=== PATIENT | female | born 1990 | race Caucasian/White ===

== ENCOUNTER → 2017-12-04 09:25 | Outpatient (CLI) | payer SELFPAY ==
[2017-12-04 12:20] LABS: Hematocrit 39.2 % (37-47); Hemoglobin 13.5 g/dl (12.0-15.0); Mean Corp Hgb Conc 34.4 g/gl (32-36); Mean Corpuscular Hgb 33.4 pg (27.0-32.0); Mean Platelet Vol. 10.6 fl (6.2-12.0); Platelet Count 222 K/mm3 (150-450); RBC Distribution Width CV 12.9 % (11.6-14.6); RBC Distribution Width SD 44.8 fl (35.1-43.9); Red Blood Count 4.04 M/mm3 (4.2-5.4); White Blood Count 11.1 K/mm3 (4.4-11.0)
[2017-12-04 12:28] LABS: Glucose Challenge Gest 1H 50g 102 mg/dL (70-140)
[2017-12-04 12:32] LABS: Scan Indicated on CBC? Y/N NO
== END ==
PROVIDERS: Visit Provider Obstetrics & Gynecology
DX: Z34.83 Encounter for supervision of other normal pregnancy, third trimester (principal)
CPT/HCPCS: 36415; 82950; 85027

== ENCOUNTER → 2018-02-04 10:52 | Outpatient (CLI) | payer OTHER, SELFPAY ==
[2018-02-04 16:44] LABS: Group B Strep DNA By PCR Negative (Negative); Internal Control PASS; Probe Check PASS; Specimen Processing Control PASS
== END ==
PROVIDERS: Visit Provider Obstetrics & Gynecology
DX: Z36.85 Encounter for antenatal screening for Streptococcus B (principal)
CPT/HCPCS: 87081; 87653

== ENCOUNTER 2018-02-26 16:40 | Inpatient (IN) | payer SELFPAY ==
[2018-02-26] MEDS: Oxytocin 30 units/NS 500 ml 30 UNITS/500 ML IV.SOLN 334 UNITS IV (17:00)
--- NOTE | 2018-02-26 17:13 | PCM.OB.VAG ---
Vaginal Delivery Maternal Presentation: Active Labor Amniotic Membrane Rupture Type: Artificial Amniotic Fluid Description: Lightly stained meconium Final JOSE JUAN: 03/04/18 Final JOSE JUAN Source: US <20 weeks Gestational age: 39 Weeks and 1 Days Surgery/ Procedure Performed: Spontaneous Vaginal Delivery - Type of Anesthesia: None Description of Procedure: Spontaneous vaginal delivery of a viable male infant with Apgars of 8/10 from an occiput anterior presentation with lightly stained meconium fluid and lightly stained placental membranes. Cord around the neck ?1 tight. No episiotomy. First-degree midline laceration repaired with 3-0 Vicryl suture. Successful . Sponge counts okay. Delivery physician: Lauro Dewey MD. Presentation: Vertex Placental Delivery Description: Spontaneous Placenta Disposition: [facility] Cord Vessel Description: 3 Vessels Cord Entanglement: Around neck x 1, tight Estimated Blood Loss: <250 cc A gender: Male (1 minute): 8 (5 minute): 10 Episiotomy Description: None Laceration: Midline, 1st degree Medications given after delivery: IV Pitocin Complications: None
--- NOTE | 2018-02-26 17:23 | PCM.DCVAG ---
Discharge Diet: No Restrictions Discharge Activity: May Shower, May Take a Tub Bath May resume sexual activity in: 4-6 weeks Additional Activity Instructions:: Nothing in the vagina for 4-6 weeks. You may return to work/school in 6 weeks. Call your doctor if you observe: Fever of 101 or Higher, Inability to urinate, Inability to have a bowel movement, Using more than one pad per hour Additional Instructions: If you experience any of the following, contact your healthcare provider. Bleeding that soaks a pad every hour for 2 hours Unrelieved incision or abdominal pain Swelling, redness, discharge or bleeding from your incision or episiotomy site Your incision begins to separate Problems urinating (including inability to urinate or burning while urinating). Visual changes Severe headache Flu-like symptoms Pain or redness in one of both of your breasts Pain, warmth, tenderness or swelling in your legs, especially the calf area Frequent nausea and vomiting Symptoms of depression or anxiety If you experience any of the following, call 911 or go to the nearest Emergency Room. Chest pain Problems breathing Seizure activity Partial or complete paralysis of a body part, slurred speech, weakness or drooping of the face, or a sudden inability to walk or hold your balance Please Follow Up With: Lauro Dewey MD - [phone] When: Call to make an appointment with your doctor in 6 weeks. Primary Care Physician: Care Physician,No Primary [Primary Care Provider] - Test Results: Test results from this visit will be discussed in further detail at your follow-up appointment, if applicable.
[2018-02-26 17:24] VITALS: BMI 33.5
[2018-02-26] MEDS: Oxytocin 30 units/NS 500 ml 30 UNITS/500 ML IV.SOLN 167 UNITS IV (17:30)
[2018-02-26 17:51] LABS: Hematocrit 39.8 % (37-47); Hemoglobin 13.8 g/dl (12.0-15.0); Mean Corp Hgb Conc 34.7 g/gl (32-36); Mean Corpuscular Hgb 33.3 pg (27.0-32.0); Mean Corpuscular Volume 96.1 fL (81-99); Mean Platelet Vol. 10.8 fl (6.2-12.0); Platelet Count 227 K/mm3 (150-450); RBC Distribution Width CV 12.9 % (11.6-14.6); RBC Distribution Width SD 44.7 fl (35.1-43.9); Red Blood Count 4.14 M/mm3 (4.2-5.4); White Blood Count 13.8 K/mm3 (4.4-11.0)
[2018-02-26 18:00] LABS: Scan Indicated on CBC? Y/N NO
[2018-02-26 20:19] VITALS: BP 146/71; PULSE 96; RESP 18; TEMP 36.6
[2018-02-27 01:11] VITALS: BP 111/66; PULSE 83; RESP 16; TEMP 36.7
[2018-02-27 05:12] VITALS: BP 111/79; PULSE 80; RESP 18; TEMP 36.6
--- NOTE | 2018-02-27 07:55 | PCM.PN.OB ---
Subjective: Patient without complaints. Minimal vaginal bleeding. Considering going home later today if baby is able to go. - Physical Exam Vital Signs Temp Pulse Resp BP 97.9 F 80 18 111/79 02/27/18 05:12 02/27/18 05:12 02/27/18 05:12 02/27/18 05:12 Oxygen Delivery Method Room Air Weight: 208 lb Body Mass Index (BMI) 33.5 Laboratory Tests Past 24 Hrs 02/26/18 02/26/18 16:45 16:45 WBC 13.8 H RBC 4.14 L Hgb 13.8 Hct 39.8 MCV 96.1 MCH 33.3 H MCHC 34.7 RDW 12.9 RDW Differential 44.7 H Plt Count 227 MPV 10.8 Blood Type A POSITIVE Antibody Screen NEGATIVE Medical Necessity - Tobacco Use Smoking Status: Former smoker Assessment/Plan Doing well. Will release to home with routine instructions.
[2018-02-27 08:02] VITALS: BP 115/78; PULSE 87; RESP 20; TEMP 36.4
[2018-02-27 12:00] VITALS: BP 110/64; PULSE 76; RESP 18; TEMP 36.1
== END 2018-02-27 18:45 | disposition home or self-care (01) | DRG 775 ==
PROVIDERS: Admitting Provider Obstetrics & Gynecology; Visit Provider Obstetrics & Gynecology
DX: O34.211 Maternal care for low transverse scar from previous cesarean delivery (principal); O71.4 Obstetric high vaginal laceration alone; O77.0 Labor and delivery complicated by meconium in amniotic fluid; O69.1XX0 Labor and delivery complicated by cord around neck, with compression, not applicable or unspecified; Z87.891 Personal history of nicotine dependence; Z3A.39 39 weeks gestation of pregnancy; Z37.0 Single live birth
CPT/HCPCS: 59050; 85027; 86850; 86900; 99218; G0378

== ENCOUNTER → 2019-11-12 | Outpatient (CLI) | payer OTHER, SELFPAY ==
[2019-11-12 13:56] LABS: Absolute Lymphocyte Count 2.62 X10^3/uL (0.83-4.51); Absolute Neutrophil Count 8.4 X10^3/uL (2.0-7.7); Basophil# 0.03 X10^3/uL; Basophil% 0.3 % (0-1); Eosinophil# 0.15 X10^3/uL; Eosinophils% 1.3 % (0-5); Hematocrit 40.2 % (37-47); Hemoglobin 13.5 g/dL (12.0-15.0); Lymphocyte # 2.62 X10^3/ul (4.0); Lymphocyte % 21.9 % (19-41); Mean Corp Hgb Conc 33.6 g/dL (32-36); Mean Corpuscular Hgb 31.9 pg (27.0-32.0); Mean Platelet Vol. 10.2 fl (6.2-12.0); Monocyte# 0.68 X10^3/uL; Monocyte% 5.7 % (0-10); NRBC Flagged by Analyzer 0 % (0-5); Neutrophil # 8.38 X10^3/uL (2.7-7.7); Neutrophil % 69.9 % (47-70); Platelet Count 296 K/mm3 (150-450); RBC Distribution Width CV 12.8 % (11.6-14.6); RBC Distribution Width SD 44.8 fl (35.1-43.9); Red Blood Count 4.23 M/mm3 (4.2-5.4)
[2019-11-12 14:01] LABS: Color, Urine Yellow (Yellow); Glucose, Dipstick Normal (Normal); Ketone-Dipstick Negative (Negative); Leukocyte Esterase-Dipstick Negative /ul (Negative); Nitrite-Dipstick Negative (Negative); Occult Blood-Urine Negative /ul (Negative); Protein-Dipstick Negative (Negative); Urine Bilirubin Dipstick Negative (Negative); Urine Clarity Clear (Clear); Urine Urobilinogen Normal (Normal)
[2019-11-12 14:47] LABS: HIV - WCH Non-Reactive (Nonreactive); Hepatitis B Surface Antigen Non-Reactive (Nonreactive); Hepatitis C Antibody Non-Reactive (Nonreactive); Rubella IgG 110.4 IU/mL
[2019-11-12 15:32] LABS: Chlamydia Trachomatis by PCR Negative (Negative); Neisserai gonorrhoeae by PCR Negative (Negative); Probe Check PASS; Sample Adequacy Control PASS; Specimen Processing Control PASS
[2019-11-16 20:41] LABS: HPV Reflexed? NOT INDICATED
[2019-11-18 03:36] LABS: Prenatal RPR NONREACTIVE (NONREACTIVE)
== END | disposition home or self-care (01) ==
LOC: LABSPEC 13:23
PROVIDERS: Visit Provider Obstetrics & Gynecology
DX: Z12.4 Encounter for screening for malignant neoplasm of cervix (principal); Z11.3 Encounter for screening for infections with a predominantly sexual mode of transmission; Z34.82 Encounter for supervision of other normal pregnancy, second trimester
CPT/HCPCS: 36415; 81002; 85025; 86703; 86762; 86803; 87340; 87491; 87591; 88175; G0145

== ENCOUNTER → 2020-01-17 14:08 | Outpatient (CLI) | payer OTHER, SELFPAY ==
[2020-01-17 15:47] LABS: Hematocrit 36.9 % (37-47); Hemoglobin 12.6 g/dL (12.0-15.0); Mean Corp Hgb Conc 34.1 g/dL (32-36); Mean Corpuscular Hgb 33.3 pg (27.0-32.0); Mean Corpuscular Volume 97.6 fL (81-99); Mean Platelet Vol. 10.4 fl (6.2-12.0); Platelet Count 249 K/mm3 (150-450); RBC Distribution Width CV 12.6 % (11.6-14.6); RBC Distribution Width SD 44.9 fl (35.1-43.9); Red Blood Count 3.78 M/mm3 (4.2-5.4); White Blood Count 11.9 K/mm3 (4.4-11.0)
[2020-01-17 15:53] LABS: Glucose Challenge Gest 1H 50g 122 mg/dL (70-140)
== END ==
PROVIDERS: Visit Provider Obstetrics & Gynecology
DX: Z34.82 Encounter for supervision of other normal pregnancy, second trimester (principal)
CPT/HCPCS: 36415; 82950; 85027

== ENCOUNTER → 2020-03-16 | Outpatient (CLI) | payer OTHER, SELFPAY | END | disposition home or self-care (01) | LOC: LABSPEC 11:47 | PROVIDERS: Visit Provider Obstetrics & Gynecology | DX: Z36.85 Encounter for antenatal screening for Streptococcus B (principal) | CPT/HCPCS: 87081 ==

== ENCOUNTER 2020-03-27 10:50 | Inpatient (IN) | payer SELFPAY, OTHER ==
[2020-03-27] VITALS (19 sets, daily range): BP systolic 104–135; BP diastolic 65–90; PULSE 75–102; RESP 16–18; TEMP 36.3–37.6; O2SAT 98–100; BMI 32.5
--- NOTE | 2020-03-27 06:31 | OB.TRI.NOTE ---
- Problem List (1) 37 weeks gestation of Status: Acute (2) False labor Status: Acute History of Present Illness Date of Service: 03/27/20 Was patient seen by the physician?: No Reason For Visit: RULE OUT LABOR Date of Service: 03/27/20 Final JOSE JUAN: 04/12/20 Final JOSE JUAN Source: US >20 weeks Gestational age: 37 Weeks and 5 Days History of Present Illness: 30yo G 6 P 3023 @ 37 5/7 wga by 22w US with hx Prior for breech presentation and 2 VBACs presents with c/o contractions. Allergies No Known Allergies Allergy (Verified 03/27/20 03:08) Physical Exam Vitals: Vital Signs Temp Pulse BP Pulse Ox 97.3 F L 75 132/73 H 100 03/27/20 06:03 03/27/20 06:03 03/27/20 06:03 03/27/20 06:03 Cervix Dilation (cm): 2 - per JUSTINE [place]: -2 Effacement (%): 60 NST - FHR Rate Baby A Baseline: 140 Variability:: Moderate Accelerations:: 15 x 15 Decelerations:: None NST Reactive:: Yes FHR Category:: Category I Uterine Activity:: 2-08/30 Impression/Plan Dx False labor at 37 weeks SVE unchanged x 3 over approximately 3 hours of observation, second trimester dating. Offered discharge home with option to be seen in office later today versus continues observation. Patient opts for discharge to home, declines office visit later today. status reassuring
--- NOTE | 2020-03-27 11:04 | HP.PCM_ITS ---
History and Physical Date of Admission: 03/27/20 Final JOSE JUAN: 04/12/20 By Ultrasound: 18 weeks 2 days HPI: 30 yo at 37/5w, JOSE JUAN 04/12/20 by 18w US, admitted for labor. +Contractions, +FM. Denies LOF, VB. Denies CHAVEZ, vision changes, chest pain, dyspnea, nausea/emesis. complicated by: prior section for breech with 2 successful VBACs, family history of cystic fibrosis, history of depression, family history of Brittle Hair Syndrome. JOSE JUAN CONFIRMATION: By LMP: 07/14/19 Final JOSE JUAN: 04/12/20 PRIOR DELIVERY HISTORY DEL DATE GEST LAB WT LB WT OZ TYPE ANES LABOR TX 06 Feb 18 39 2 7 11 Vag Local No 16 Sep 16 38 8 7 7 Vag Local No 17 Jan 13 7 0 0 0 Sab None No 17 Young 14 39 0 6 11 C-Sec Spinal No 28 Sep 15 9 0 0 0 Sab None No ALLERGIES: NKDA MEDICATIONS: Adrenal Supplement [No Strength] two tablets BID 27-0.8 mg tablet 1 PO QD Vitamin C 1,000 mg oral effervescent powder packet One pill by mouth once a day SOCIAL HISTORY: Smoking - Never Alcohol Use - None Diet - moderate, balanced diet Lifestyle - low stress lifestyle and Medical Hx: denies Surgical Hx: section REVIEW OF SYSTEMS: GENERAL - Denies fever, or chills SKIN - Denies rash, new skin lesions, or change in moles EYES - Denies blurred vision, or change in visual acuity EARS - Denies ear pain, or difficulty hearing NOSE - Denies nasal congestion, discharge, or bleeding MOUTH - Denies sore throat, or difficulty swallowing NECK - Denies pain or swelling RESPIRATORY - Denies shortness of breath, cough, wheezing CARDIOVASCULAR - Denies palpitations, chest pain, orthopnea, PND, peripheral edema, syncope or claudication GASTROINTESTINAL - Denies nausea, vomiting, diarrhea, constipation, Denies abdominal pain, melena and or bright red blood GENITOURINARY - Denies dysuria, frequency of urination, urgency, or hesitancy MUSCULOSKELETAL - Denies joint or muscle pain, or back pain NEUROLOGICAL - Denies localized numbness, weakness, or tingling PSYCHIATRIC - Denies depression, anxiety, substance abuse or suicide attempts ENDOCRINE - Denies heat or cold intolerance, weight loss or gain, increasing thirst HEMATO-IMMUNOLOGIC - Denies easy bruising, bleeding, oral ulcerations or recurrent infections INFECTION HISTORY: High risk AIDS: No High risk Hepatitis: No Exposed to TB: No Exposed to Herpes: No Rash/viral illness since LMP: No History of STD: No Labs: Mom's Labs & Results 03/27/20 03/27/20 11:10 11:10 WBC 16.9 H RBC 4.58 Hgb 14.7 Hct 43.1 MCV 94.1 MCH 32.1 H MCHC 34.1 RDW Std Deviation 43.8 RDW Coeff of Erasmo 12.7 Plt Count 278 MPV 10.8 Immature Gran % (Auto) 1.900 H Neut % (Auto) 74.3 H Lymph % (Auto) 16.7 L [place] % (Auto) 6.8 Eos % (Auto) 0.1 Baso % (Auto) 0.2 Absolute Neuts (auto) 12.5 H Absolute Lymphs (auto) 2.82 Nucleated RBC % 0 Blood Type Pending Antibody Screen Pending Labs Blood Type: A RH: POSITIVE RPR/VDRL/Syphilis Nonreactive Rubella status Immune HbSAg Negative Date Done: 11/12/19 Chlamydia Negative Gonorrhea Negative HIV/AIDS Non-Reactive Group B Strep: Negative Physical Exam: Vital Signs Temp Pulse BP Pulse Ox 03/27/20 11:49 98.5 F 95 128/77 H 98 03/27/20 11:48 98.4 F 03/27/20 11:24 99.3 F H 03/27/20 11:02 99.6 F H 101 H 135/90 H 100 10/05/20 06:03 97.3 F L 75 132/73 H 100 03/27/20 02:58 98.1 F 96 120/75 GEN: NAD HEENT: NC/AT CARDIORESPIRATORY: no increased effort ABDOMEN: soft, NT, gravid EXT: no edema MSK: muscle 5/5 all extremities Neuro: CN 2-12 grossly in tact CE: 7-8 cm per RN FHR: 140/min erasmo/+accel/no decel [place]: not tracing A/P: 30 yo at 37/5w, JOSE JUAN 04/12/20 by 18w US, admitted for labor. complicated by: prior section for breech with 2 successful VBACs, family history of cystic fibrosis, history of depression, family history of Brittle Hair Syndrome. -Admit for trial of labor after section -Routine orders -GBS negative
[2020-03-27] MEDS: Lactated Ringers 1,000 ML 50 ML IV (11:10)
[2020-03-27] MEDS: Lactated Ringers 500 ML 999 ML IV (11:11)
[2020-03-27] MEDS: Oxytocin 30 units/NS 500 ml 30 UNITS/500 ML IV.SOLN 334 UNITS IV (11:41)
[2020-03-27 11:57] LABS: Absolute Lymphocyte Count 2.82 X10^3/uL (0.83-4.51); Absolute Neutrophil Count 12.5 X10^3/uL (2.0-7.7); Basophil# 0.04 X10^3/uL; Basophil% 0.2 % (0-1); Eosinophil# 0.02 X10^3/uL; Eosinophils% 0.1 % (0-5); Hematocrit 43.1 % (37-47); Hemoglobin 14.7 g/dL (12.0-15.0); Lymphocyte # 2.82 X10^3/ul (4.0); Lymphocyte % 16.7 % (19-41); Mean Corp Hgb Conc 34.1 g/dL (32-36); Mean Corpuscular Hgb 32.1 pg (27.0-32.0); Mean Corpuscular Volume 94.1 fL (81-99); Mean Platelet Vol. 10.8 fl (6.2-12.0); Monocyte# 1.15 X10^3/uL; Monocyte% 6.8 % (0-10); NRBC Flagged by Analyzer 0 % (0-5); Neutrophil # 12.51 X10^3/uL (2.7-7.7); Neutrophil % 74.3 % (47-70); Platelet Count 278 K/mm3 (150-450); RBC Distribution Width CV 12.7 % (11.6-14.6); RBC Distribution Width SD 43.8 fl (35.1-43.9); Red Blood Count 4.58 M/mm3 (4.2-5.4); White Blood Count 16.9 K/mm3 (4.4-11.0)
--- NOTE | 2020-03-27 11:59 | PCM.OPRPT ---
Vaginal Delivery Maternal Presentation: Active Labor Final JOSE JUAN: 04/12/20 Final JOSE JUAN Source: US <20 weeks Gestational age: 37 Weeks and 5 Days Date of Procedure: 03/27/20 Pre-Operative Diagnosis: Active labor, Trial of labor after section, Larios IUP at 37/5 Post-Operative Diagnosis: Active labor, vaginal deliver after section, Larios IUP at 37/5 Surgery/ Procedure Performed: Spontaneous Vaginal Delivery Type of Anesthesia: None Description of Procedure: Cervix dilated to 10 cm, artificial rupture of membranes to clear fluid. Spontaneous vaginal delivery of viable male infant. Nuchal cord, loose. Delivered through. Baby to mom. Cord clamped and cut. Spontaneous delivery of placenta. No lacerations. EBL 300cc. APGARS 9/9. Cord Vessel Description: 3 Vessels (1 minute): 9 (5 minute): 9 Medications given after delivery: IV Pitocin
--- NOTE | 2020-03-27 12:02 | DCINST_ITS ---
Discharge Diet: No Restrictions Discharge Activity: Return to Normal Activity, May Shower May resume sexual activity in: 6 weeks Weight Bearing Status: Weight bearing as tolerated Call your doctor if you observe: Fever of 101 or Higher, Inability to urinate, Inability to have a bowel movement, Using more than one pad per hour, Shortness of breath, Dizziness Additional Instructions: If you experience any of the following, contact your healthcare provider. * Bleeding that soaks a pad every hour for 2 hours * Fever 100.4 or higher * Unrelieved incision or abdominal pain * Swelling, redness, discharge or bleeding from your incision or episiotomy site * Your incision begins to separate * Problems urinating (including inability to urinate or burning while urinating). * Visual changes * Severe headache * Flu-like symptoms * Pain or redness in one of both of your breasts * Pain, warmth, tenderness or swelling in your legs, especially the calf area * Frequent nausea and vomiting * Symptoms of depression or anxiety If you experience any of the following, call 911 or go to the nearest Emergency Room. * Chest pain * Problems breathing * Seizure activity * Partial or complete paralysis of a body part, slurred speech, weakness or drooping of the face, or a sudden inability to walk or hold your balance Allergies/Adverse Reactions: Allergies No Known Allergies Allergy (Verified 03/27/20 11:06) Medications to take at Discharge Vit Calc,Iron,Folic [ Vitamins] 1 each PO DAILY PRN PRN 02/26/18 Please Follow Up With: Lauro Dewey MD When: 6weeks Primary Care Physician: Care Physician,No Primary [Primary Care Provider] - Test Results: Test results from this visit will be discussed in further detail at your follow- up appointment, if applicable. Proposed Discharge Date: 03/28/20
--- NOTE | 2020-03-27 12:02 | PCM.DCVAG ---
Discharge Diet: No Restrictions Discharge Activity: Return to Normal Activity, May Shower May resume sexual activity in: 6 weeks Weight Bearing Status: Weight bearing as tolerated Call your doctor if you observe: Fever of 101 or Higher, Inability to urinate, Inability to have a bowel movement, Using more than one pad per hour, Shortness of breath, Dizziness Additional Instructions: If you experience any of the following, contact your healthcare provider. Bleeding that soaks a pad every hour for 2 hours Fever 100.4 or higher Unrelieved incision or abdominal pain Swelling, redness, discharge or bleeding from your incision or episiotomy site Your incision begins to separate Problems urinating (including inability to urinate or burning while urinating). Visual changes Severe headache Flu-like symptoms Pain or redness in one of both of your breasts Pain, warmth, tenderness or swelling in your legs, especially the calf area Frequent nausea and vomiting Symptoms of depression or anxiety If you experience any of the following, call 911 or go to the nearest Emergency Room. Chest pain Problems breathing Seizure activity Partial or complete paralysis of a body part, slurred speech, weakness or drooping of the face, or a sudden inability to walk or hold your balance Allergies/Adverse Reactions: Allergies No Known Allergies Allergy (Verified 03/27/20 11:06) Medications to take at Discharge Vit Calc,Iron,Folic [ Vitamins] 1 each PO DAILY PRN PRN 02/26/18 Please Follow Up With: Lauro Dewey MD When: 6weeks Primary Care Physician: Care Physician,No Primary [Primary Care Provider] - Test Results: Test results from this visit will be discussed in further detail at your follow-up appointment, if applicable. Proposed Discharge Date: 03/28/20
[2020-03-27] MEDS: 0.9% Saline Lock 10 ML Syringe IV (14:25)
--- NOTE | 2020-03-27 14:44 | NURSING ---
1425 voided, missed hat, feels like bladder empty
[2020-03-28 00:15] VITALS: BP 119/62; PULSE 87; RESP 16; TEMP 36.6
[2020-03-28 04:55] VITALS: BP 105/64; PULSE 86; RESP 18; TEMP 36.8
[2020-03-28 07:40] VITALS: BP 111/65; PULSE 88; RESP 16; TEMP 36.4
--- NOTE | 2020-03-28 08:38 | PN.OBGYN_ITS ---
Subjective: Patient without complaints. Breast-feeding is going well and minimal vaginal bleeding. Wants to stay until tomorrow. - Physical Exam Vitals/I&O's: Vital Signs Temp Pulse Resp BP Pulse Ox 97.6 F L 88 16 111/65 100 03/28/20 07:40 03/28/20 07:40 03/28/20 07:40 03/28/20 07:40 03/27/20 13:50 Oxygen Delivery Method Room Air Weight: 202 lb Body Mass Index (BMI) 32.5 Intake and Output for Last 24 Hours 03/26/20 03/27/20 03/28/20 23:59 23:59 23:59 Intake Total 873.80 / 873.80 Balance 873.80 / 873.80 Laboratory Results 03/27/20 11:10: WBC 16.9 H, RBC 4.58, Hgb 14.7, Hct 43.1, MCV 94.1, MCH 32.1 H, MCHC 34.1, RDW Std Deviation 43.8, RDW Coeff of Erasmo 12.7, Plt Count 278, MPV 10.8, Immature Gran % (Auto) 1.900 H, Neut % (Auto) 74.3 H, Lymph % (Auto) 16.7 L, [place] % (Auto) 6.8, Eos % (Auto) 0.1, Baso % (Auto) 0.2, Absolute Neuts (auto) 12.5 H, Absolute Lymphs (auto) 2.82, Nucleated RBC % 0 03/27/20 11:10: Blood Type A POSITIVE, Antibody Screen NEGATIVE Current Medications Acetaminophen (Tylenol) 1,000 mg PO Q8H PRN PRN PRN Reason: Pain Score 1-3/10 Bisacodyl (Dulcolax) 10 mg RECTAL UD PRN PRN Reason: If no BM Dibucaine (Dibucaine) 1 applic TOPICAL TID PRN PRN; Protocol PRN Reason: Discomfort Hydrocortisone (Hytone) 1 applic TOPICAL TID PRN PRN; Protocol PRN Reason: Discomfort Ibuprofen (Motrin) 600 mg PO Q6H PRN PRN PRN Reason: Pain Score 1-3/10 Ondansetron HCl (Zofran) 4 mg IV Q4H PRN PRN PRN Reason: Nausea Senna/Docusate Sodium (Senokot-S, Robyn-Colace) 1 - 2 tablet PO DAILY PRN PRN PRN Reason: Constipation Simethicone (Mylicon) 80 mg PO PCHS PRN PRN Reason: Indigestion/Stomach pain Sodium Chloride () 5 - 15 ml IV UD PRN PRN Reason: SALINE FLUSH Last Admin: 03/27/20 14:25 Dose: 10 ml Documented by: Zolpidem Tartrate (Ambien (Generic)) 5 mg PO QHS PRN PRN PRN Reason: Insomnia Medical Necessity - Tobacco Use Smoking Status: Never smoker Assessment/Plan All Active Problems 37 weeks gestation of (Acute) False labor (Acute) Doing well day #1 status post routine vaginal after . Continuing present care.
[2020-03-28 14:09] VITALS: BP 115/67; PULSE 92; RESP 16; TEMP 36.7; O2SAT 96
[2020-03-28 20:55] VITALS: BP 106/64; PULSE 89; RESP 16; TEMP 37.2; O2SAT 98
[2020-03-29 01:49] VITALS: BP 114/62; PULSE 91; RESP 16; TEMP 36.8
[2020-03-29 07:33] VITALS: BP 101/64; PULSE 90; RESP 16; TEMP 36.8
--- NOTE | 2020-03-29 10:06 | PCM.PN.OB ---
Subjective: Patient without complaints. Breast-feeding going well. Wants to go home. - Physical Exam Vitals/I&O's: Vital Signs Temp Pulse Resp BP Pulse Ox 98.2 F 90 16 101/64 98 03/29/20 07:33 03/29/20 07:33 03/29/20 07:33 03/29/20 07:33 03/28/20 20:55 Oxygen Delivery Method Room Air Weight: 202 lb Body Mass Index (BMI) 32.5 Intake and Output for Last 24 Hours 03/27/20 03/28/20 03/29/20 23:59 23:59 23:59 Intake Total 873.80 / 873.80 Balance 873.80 / 873.80 Current Medications Acetaminophen (Tylenol) 1,000 mg PO Q8H PRN PRN PRN Reason: Pain Score 1-3/10 Bisacodyl (Dulcolax) 10 mg RECTAL UD PRN PRN Reason: If no BM Dibucaine (Dibucaine) 1 applic TOPICAL TID PRN PRN; Protocol PRN Reason: Discomfort Hydrocortisone (Hytone) 1 applic TOPICAL TID PRN PRN; Protocol PRN Reason: Discomfort Ibuprofen (Motrin) 600 mg PO Q6H PRN PRN PRN Reason: Pain Score 1-3/10 Ondansetron HCl (Zofran) 4 mg IV Q4H PRN PRN PRN Reason: Nausea Senna/Docusate Sodium (Senokot-S, Robyn-Colace) 1 - 2 tablet PO DAILY PRN PRN PRN Reason: Constipation Simethicone (Mylicon) 80 mg PO PCHS PRN PRN Reason: Indigestion/Stomach pain Sodium Chloride () 5 - 15 ml IV UD PRN PRN Reason: SALINE FLUSH Last Admin: 03/27/20 14:25 Dose: 10 ml Documented by: Zolpidem Tartrate (Ambien (Generic)) 5 mg PO QHS PRN PRN PRN Reason: Insomnia Medical Necessity - Tobacco Use Smoking Status: Never smoker Assessment/Plan All Active Problems 37 weeks gestation of (Acute) False labor (Acute) Doing well day #2 status post routine vaginal after . Will discharge to home with routine instructions.
== END 2020-03-29 10:06 | disposition home or self-care (01) | DRG 807 ==
LOC: WP 11:43
PROVIDERS: Admitting Provider Student in an Organized Health Care Education/Training Program; Referring Provider Obstetrics & Gynecology; Visit Provider Student in an Organized Health Care Education/Training Program
DX: O69.81X0 Labor and delivery complicated by cord around neck, without compression, not applicable or unspecified (principal); Z37.0 Single live birth; Z3A.37 37 weeks gestation of pregnancy
CPT/HCPCS: 59025; 59050; 85025; 86850; 86900; 86901; 99218; J7120; A4216; G0378